=== PATIENT | male | born 1975 ===

== ENCOUNTER 2017-04-22 21:21 | Emergency (ER) | payer OTHER ==
[2017-04-22 21:21] VITALS: BMI 30.7
[2017-04-22 22:25] VITALS: BP 163/106; PULSE 82; RESP 16; TEMP 98; O2SAT 99
[2017-04-23] MEDS ORDERED: DiphenhydrAMINE 50 mg/ml Inj IV ONE (00:19)
--- NOTE | 2017-04-23 00:22 | ED PDOC ---
HPI: Skin/Bite Injury Time Seen by Provider: 04/22/17 23:46 Chief Complaint (Nursing): Abnormal Skin Integrity Chief Complaint (Provider): itching skin History Per: Patient History/Exam Limitations: no limitations Onset/Duration Of Symptoms: Days (2) Quality Of Symptoms: Itching Additional Complaint(s): 42 y/o male no past medical history presents for evaluation of itching to diffuse skin x 2 days. Patient states only when he scratches he notes redness. Denies fever, cough, chest pain, abdominal pain, known allergen. Patient reports no relief with Benadryl. Past Medical History Reviewed: Historical Data, Nursing Documentation, Vital Signs Vital Signs: Last Vital Signs Temp 98.0 F 04/22/17 22:22 Pulse 82 04/22/17 22:22 Resp 16 04/22/17 22:22 BP 163/106 H 04/22/17 22:22 Pulse Ox 99 04/23/17 00:22 - Medical History PMH: HTN Denies: Chronic Kidney Disease - Surgical History Surgical History: Appendectomy (PERITONITIS) - Family History Family History: States: Unknown Family Hx - Home Medications Home Medications: Ambulatory Orders Medication Instructions Recorded Cyclobenzaprine [Flexeril] 5 mg PO TID PRN 04/17/15 Docusate [Colace] 100 mg PO BID 04/17/15 Hydrochlorothiazide [HCTZ] 12.5 mg PO DAILY 04/17/15 Oxycodone HCl/Acetaminophen 5 - 325 mg PO Q4 PRN 04/17/15 [Percocet 5-325 mg Tablet] Gabapentin [Neurontin] 300 mg PO DAILY #15 cap 04/22/16 Metoprolol Tartrate [Lopressor] 50 mg PO BID #30 tab 04/22/16 Naproxen 500 mg PO BID #20 tab 04/22/16 Cetirizine HCl [Zyrtec] 10 mg PO DAILY #10 capsule 04/23/17 - Allergies Allergies/Adverse Reactions: Allergies Allergy/AdvReac Type Severity Reaction Status Date / Time No Known Allergies Allergy Verified 04/22/17 22:22 Review of Systems ROS Statement: Except As Marked, All Systems Reviewed And Found Negative Skin: Positive for: Other (itching) Physical Exam - Reviewed Nursing Documentation Reviewed: Yes Vital Signs Reviewed: Yes - Physical Exam Appears: Positive for: Well, Non-toxic, No Acute Distress Head Exam: Positive for: ATRAUMATIC, NORMAL INSPECTION, NORMOCEPHALIC Skin: Positive for: Normal Color Eye Exam: Positive for: Normal appearance ENT: Positive for: Normal ENT Inspection Cardiovascular/Chest: Positive for: Regular Rate, Rhythm Respiratory: Positive for: Normal Breath Sounds Gastrointestinal/Abdominal: Positive for: Normal Exam Back: Positive for: Normal Inspection Extremity: Positive for: Normal ROM Neurologic/Psych: Positive for: Alert, Oriented - Laboratory Results Result Diagrams: 04/23/17 01:10 04/23/17 01:10 - ECG O2 Sat by Pulse Oximetry: 99 - Progress ED Course And Treament: labs Benadryl, Pepcid Patient educated on findings, discharged with rx Zyrtec. Advisd follow up PMD Return precautions given. Disposition - Clinical Impression Clinical Impression: Skin pruritus - Patient ED Disposition Is Patient to be Admitted: No Counseled Patient/Family Regarding: Diagnosis, Need For Followup - Disposition Referrals: [facility] [Outside] Disposition: Routine/Home Disposition Time: 02:34 Condition: IMPROVED Prescriptions: Cetirizine HCl [Zyrtec] 10 mg PO DAILY #10 capsule Instructions: Itchy Skin (ED)
[2017-04-23] MEDS ORDERED: DiphenhydrAMINE 50 mg/ml Inj ONE (00:48)
[2017-04-23 01:37] LABS: BASO % 0.3 % (0.0-2.0); EOS # 0.3 K/uL (0.0-0.7); HEMOGLOBIN 14.6 g/dL (12.0-18.0); LYMPH # 2.2 K/uL (1.0-4.3); LYMPH % 38.5 % (20.0-40.0); MEAN CELL VOLUME 87.1 fl (80.0-94.0); MEAN CORPUSCULAR HEMOGLOBIN 29.1 pg (27.0-31.0); MEAN CORPUSCULAR HGB CONC 33.4 g/dL (33.0-37.0); MEAN PLATELET VOLUME 9.2 fl (7.2-11.7); MONO # 0.6 K/uL (0.0-0.8); MONO % 10.8 % (0.0-10.0); NEUT # 2.6 K/uL (1.8-7.0); NEUT % 45.4 % (50.0-75.0); NRBC % 0.2 % (0.0-0.0); RBC 5.01 Mil/uL (4.40-5.90); RED CELL DISTRIBUTION WIDTH 14.1 % (11.5-14.5); WHITE BLOOD COUNT 5.7 K/uL (4.8-10.8)
[2017-04-23 01:48] LABS: ALB/GLOB RATIO 1.3 (1.0-2.1); ALBUMIN 4.3 g/dL (3.5-5.0); ALT/SGPT 58 U/L (21-72); AST/SGOT 32 U/L (17-59); BLOOD UREA NITROGEN 21 mg/dl (9-20); CALCIUM 9.5 mg/dL (8.4-10.2); GFR AFRICAN-AMERICAN > 60; GFR NON-AFRICAN AMERICAN > 60
== END 2017-04-23 02:43 | disposition short-term general hospital (02) ==
LOC: H.ER 21:21
DX: L29.9 Pruritus, unspecified (principal); I10 Essential (primary) hypertension
CPT/HCPCS: 80053; 85025; 96374; 99282; J1200

== ENCOUNTER 2017-12-22 21:43 | Emergency (ER) | payer SELFPAY ==
[2017-12-22 21:43] VITALS: BMI 30.7
[2017-12-22] MEDS ORDERED: Iohexol 240 (50 ml) PO ONE (22:44)
[2017-12-22 23:21] LABS: URINE BACTERIA RARE (<OCC); URINE BILIRUBIN NEGATIVE (NEGATIVE); URINE BLOOD NEGATIVE (NEGATIVE); URINE CLARITY SLIGHTY-CLOUDY (Clear); URINE COLOR YELLOW (YELLOW); URINE GLUCOSE (UA) NEG (Normal); URINE HYALINE CAST 0-2 /hpf (0-2); URINE LEUKOCYTE ESTERASE NEG Leu/uL (Negative); URINE PROTEIN NEGATIVE (NEGATIVE)
[2017-12-22 23:30] LABS: ALB/GLOB RATIO 1.2 (1.0-2.1); ALBUMIN 4.5 g/dL (3.5-5.0); ALT/SGPT 32 U/L (21-72); AST/SGOT 22 U/L (17-59); BILIRUBIN,DIRECT 0.3 mg/ml (0.0-0.4); BLOOD UREA NITROGEN 17 mg/dl (9-20); GFR NON-AFRICAN AMERICAN > 60
[2017-12-22 23:39] LABS: BASO % 0.4 % (0.0-2.0); EOS # 0.1 K/uL (0.0-0.7); EOS % 1.7 % (0.0-4.0); HEMOGLOBIN 15.5 g/dL (12.0-18.0); LYMPH # 2.8 K/uL (1.0-4.3); LYMPH % 36.6 % (20.0-40.0); MEAN CELL VOLUME 86.9 fl (80.0-94.0); MEAN CORPUSCULAR HEMOGLOBIN 30.6 pg (27.0-31.0); MEAN CORPUSCULAR HGB CONC 35.2 g/dL (33.0-37.0); MEAN PLATELET VOLUME 9.2 fl (7.2-11.7); MONO # 0.5 K/uL (0.0-0.8); NEUT # 4.2 K/uL (1.8-7.0); NEUT % 54.3 % (50.0-75.0); NRBC % 0.2 % (0.0-0.0); RBC 5.08 Mil/uL (4.40-5.90); RED CELL DISTRIBUTION WIDTH 13.4 % (11.5-14.5); WHITE BLOOD COUNT 7.7 K/uL (4.8-10.8)
--- NOTE | 2017-12-23 01:04 | ED PDOC ---
HPI: Abdomen Time Seen by Provider: 12/22/17 22:17 Chief Complaint (Nursing): Abdominal Pain Chief Complaint (Provider): Abdominal Pain History Per: Patient Onset/Duration Of Symptoms: Days, Worse Since Current Symptoms Are (Timing): Still Present Quality Of Discomfort: "Pain" Associated Symptoms: Fever. denies: Vomiting, Diarrhea, Urinary Symptoms Additional Complaint(s): 42 year old male with a history of open appendectomy presents to the ER for an evaluation of lower abdominal pain onset for 3 days. Patient reports the pain is worsening since onset with subjective fever. He denies nausea, vomiting, abnormal stool or urinary symptoms. PMD: [facility] Loo Past Medical History Reviewed: Historical Data, Nursing Documentation, Vital Signs Vital Signs: Last Vital Signs Temp 97.8 F 12/22/17 22:02 Pulse 85 12/22/17 22:02 Resp 16 12/22/17 22:02 BP 146/91 H 12/22/17 22:52 Pulse Ox 98 12/22/17 22:02 - Medical History PMH: HTN Denies: Chronic Kidney Disease - Surgical History Surgical History: Appendectomy (PERITONITIS) - Family History Family History: States: Unknown Family Hx - Social History Current smoker - smoking cessation education provided: Yes Alcohol: None Drugs: Denies - Home Medications Home Medications: Ambulatory Orders Medication Instructions Recorded Cyclobenzaprine [Flexeril] 5 mg PO TID PRN 04/17/15 Docusate [Colace] 100 mg PO BID 04/17/15 Hydrochlorothiazide [HCTZ] 12.5 mg PO DAILY 04/17/15 Oxycodone HCl/Acetaminophen 5 - 325 mg PO Q4 PRN 04/17/15 [Percocet 5-325 mg Tablet] Gabapentin [Neurontin] 300 mg PO DAILY #15 cap 04/22/16 Metoprolol Tartrate [Lopressor] 50 mg PO BID #30 tab 04/22/16 Naproxen 500 mg PO BID #20 tab 04/22/16 Cetirizine HCl [Zyrtec] 10 mg PO DAILY #10 capsule 04/23/17 Ibuprofen [Motrin Tab] 600 mg PO Q6 #30 tab 12/23/17 - Allergies Allergies/Adverse Reactions: Allergies Allergy/AdvReac Type Severity Reaction Status Date / Time No Known Allergies Allergy Verified 12/22/17 22:02 Review of Systems ROS Statement: Except As Marked, All Systems Reviewed And Found Negative Constitutional: Positive for: Fever Gastrointestinal: Positive for: Abdominal Pain. Negative for: Nausea, Vomiting, Diarrhea Genitourinary Male: Negative for: Dysuria, Frequency, Incontinence Physical Exam - Reviewed Nursing Documentation Reviewed: Yes Vital Signs Reviewed: Yes - Physical Exam Appears: Positive for: Non-toxic, No Acute Distress Head Exam: Positive for: ATRAUMATIC, NORMAL INSPECTION, NORMOCEPHALIC Skin: Positive for: Normal Color, Warm, Dry Eye Exam: Positive for: EOMI, Normal appearance, PERRL ENT: Positive for: Normal ENT Inspection Neck: Positive for: Normal, Painless ROM, Supple. Negative for: Decreased ROM Cardiovascular/Chest: Positive for: Regular Rate, Rhythm. Negative for: Murmur Respiratory: Positive for: Normal Breath Sounds. Negative for: Decreased Breath Sounds, Wheezing, Respiratory Distress Gastrointestinal/Abdominal: Positive for: Tenderness (bilateral lower abdomen). Negative for: Guarding, Rebound Back: Positive for: Normal Inspection. Negative for: L CVA Tenderness, R CVA Tenderness Extremity: Positive for: Normal ROM. Negative for: Tenderness, Pedal Edema, Deformity Neurologic/Psych: Positive for: Alert, Oriented (x3). Negative for: Motor/Sensory Deficits - Laboratory Results Result Diagrams: 12/22/17 23:10 12/22/17 23:10 - ECG O2 Sat by Pulse Oximetry: 98 (RA) Pulse Ox Interpretation: Normal Medical Decision Making Medical Decision Making: Time: 2243 Assessment: 42 year old well-appearing male with abdominal pain Differential Diagnosis includes but not limited to: Colitis vs Diverticulitis vs Complications from appendectomy Initial Plan: --Abdomen & Pelvis PO & IV Contrast [CT] --BMP --Liver Profile --CBC w/ Differential --Omnipaque 240 (50ml) --Toradol 30mg --Urinalysis --Reevaluation 230AM --Patient has bilateral inguinal hernias without incarceration on CT, no other acute findings --Patient is very comfortable, well appearing, tolerating PO --Advised NSAIDs and followup with primary care --Vitals improved Scribe Attestation: Documented by Nichol Guillen acting as a scribe for Kian Hale MD Provider Scribe Attestation: All medical record entries made by the Scribe were at my direction and personally dictated by me. I have reviewed the chart and agree that the record accurately reflects my personal performance of the history, physical exam, medical decision making, and the department course for this patient. I have also personally directed, reviewed, and agree with the discharge instructions and disposition. Disposition - Clinical Impression Clinical Impression: Inguinal hernia - Patient ED Disposition Is Patient to be Admitted: No - Disposition Referrals: Virgilio Wisdom MD [Family Provider] - Disposition: Routine/Home Disposition Time: 02:39 Condition: IMPROVED Prescriptions: Ibuprofen [Motrin Tab] 600 mg PO Q6 #30 tab Instructions: Inguinal and Femoral (Groin) Hernias Forms: [employer] ([place]) Print Language: GUATEMALAN
[2017-12-23] MEDS ORDERED: Iohexol 300 100 ML IJ ONE (01:14)
[2017-12-23 03:10] VITALS: BP 146/93; PULSE 70; RESP 18; TEMP 98; O2SAT 99
--- NOTE | 2017-12-23 13:09 | CT ---
Date of service: 12/23/2017 PROCEDURE: CT Abdomen and Pelvis with contrast HISTORY: lower abd pain, hx of appy w/ perf with open repai COMPARISON: None. TECHNIQUE: Contrast dose: Radiation dose: Total exam DLP = 604.44 mGy-cm. This CT exam was performed using one or more of the following dose reduction techniques: Automated exposure control, adjustment of the mA and/or kV according to patient size, and/or use of iterative reconstruction technique. FINDINGS: LOWER THORAX: There is dependent atelectasis in the lung bases. LIVER: Normal in size with homogeneous enhancement. No gross lesion or ductal dilatation. GALLBLADDER AND BILE DUCTS: No calcified gallstones. PANCREAS: Normal in size with homogeneous enhancement. No gross lesion or ductal dilatation. SPLEEN: Normal in size and appearance. ADRENALS: No discrete nodule. KIDNEYS AND URETERS: Normal in size with homogeneous enhancement. No hydronephrosis. No solid mass. VASCULATURE: No aortic aneurysm. BOWEL: Unremarkable. No obstruction. No gross mural thickening. APPENDIX: Normal appendix. PERITONEUM: There is a 3.8 x 2.8 cm well-circumscribed ovoid fluid density mass in the left mid abdomen between the small bowel lobes. No free fluid. No free air. LYMPH NODES: Unremarkable. No enlarged lymph nodes. BLADDER: Well distended and normal in appearance. There is a urachal remnant. REPRODUCTIVE: The prostate gland is normal in size. BONES: No acute fracture. Within normal limits for the patient's age. OTHER FINDINGS: There is fat containing midline ventral hernia. IMPRESSION: No acute abdominal or pelvic abnormality. Moderate hepatomegaly and fatty liver. 3.8 x 2.8 cm cystic mass in the left mid abdomen between the small bowel loops. The differential considerations include mesenteric/peritoneal cyst, pseudocyst and neural enteric cyst. A preliminary report was provided by [employer].
== END 2017-12-23 03:06 | disposition home or self-care (01) ==
LOC: H.ER 21:43
DX: K40.90 Unilateral inguinal hernia, without obstruction or gangrene, not specified as recurrent (principal); F17.200 Nicotine dependence, unspecified, uncomplicated; I10 Essential (primary) hypertension
CPT/HCPCS: 74177; 80048; 80076; 81003; 85025; 96374; 99283; J1885; Q9966; Q9967